=== PATIENT | female | born 1995 | race Caucasian/White ===

== ENCOUNTER 2020-08-06 10:35 | Outpatient (CLI) | payer OTHER ==
[~2020-08-06 10:35] MED LIST: CEFADROXIL500 MG PO; SIMVASTATIN20 MG PO; SYNTHROID100 MCG PO; TRAM1TAB98 PO
== END 2020-08-06 10:40 | disposition home or self-care (01) ==
LOC: SONOGRAMA 10:35
PROVIDERS: ATTEND Pathology Anatomic Pathology & Clinical Pathology
DX: E04.2 Nontoxic multinodular goiter (principal)